=== PATIENT | male | born 1930 | race Caucasian/White ===

== ENCOUNTER 2018-07-04 12:25 | Emergency (ER) | payer MEDICARE, BC ==
[~2018-07-04] VITALS: Ht 177.8 cm; Wt 65.7 kg
[~2018-07-04 12:25] MED LIST: ACID1TAB3 PO; CHOL100011 PO; SULF1TAB24 PO; UBID1CAP43 PO; WARF7.5T46 PO-COUM
[2018-07-04 13:33] LABS: ALBUMIN 3.2 g/dL (3.4-5.0); ANION GAP 5 mmol/L (5-15); CALCIUM 8.6 mg/dL (8.5-10.1); CHLORIDE 104 mmol/L (98-107)
[2018-07-04 13:38] LABS: ALANINE AMINOTRANSFERASE 27 U/L (12-78); ALKALINE PHOSPHATASE 59 U/L (45-117); BILIRUBIN,TOTAL 0.9 mg/dL (0.2-1.0); CREATININE 0.98 mg/dL (0.7-1.3); TOTAL PROTEIN 6.5 g/dL (6.4-8.2); TROPONIN I < 0.015 ng/mL (0.000-0.045)
[2018-07-04 15:22] VITALS: BP 113/61
[2018-07-04 15:30] LABS: CULTURE INDICATED? YES; MICROSCOPIC INDICATED
[2018-07-04 17:09] LABS: MEAN PLATELET VOLUME 7.5 fL (7.4-10.4); PLATELET COUNT 180 x10^3/uL (130-400)
[2018-07-04 17:10] LABS: MD YES; MEAN CORPUSCULAR HEMOGLOBIN 31.3 pg (27.5-34.5); MEAN CORPUSCULAR HGB CONC 34.3 g/dL (33.2-36.2); MEAN CORPUSCULAR VOLUME 91.3 fL (81-97); RED BLOOD COUNT 4.48 x10^6/uL (4.38-5.82); RED CELL DISTRIBUTION WIDTH 12.7 % (9.4-14.8)
[2018-07-04 17:11] LABS: <RBC MORPHOLOGY> NORMAL; LYMPH#(MANUAL) 1.27 x10^3/uL (1-3.4); LYMPHS% (MANUAL) 23 % (22-44); MONOS#(MANUAL) 0.77 x10^3/uL (0.3-2.7); MONOS% (MANUAL) 14 % (2-9); SEG#(MANUAL) 3.47 x10^3/uL (1.8-6.8); SEGS% (MANUAL) 63 % (42-75)
[2018-07-04 17:12] LABS: <PLATELET ESTIMATE> ADEQUATE; <PLT MORPHOLOGY> NORMAL PLT MORPH
== END 2018-07-04 17:44 | disposition home or self-care (01) ==
LOC: ED 15:02
DX: Z00.00 Encounter for general adult medical examination without abnormal findings (principal); R68.2 Dry mouth, unspecified; E03.9 Hypothyroidism, unspecified; I48.91 Unspecified atrial fibrillation
CPT/HCPCS: 36415; 71045; 80053; 81001; 84484; 85025; 87086; 93005; 99284